=== PATIENT | female | born 1985 | race Hispanic/Latino ===

== ENCOUNTER 2018-09-20 16:32 | Emergency (ER) | payer MEDICAID, SELFPAY ==
[2018-09-20 16:56] LABS: Bilirubin Negative (Negative); Blood, Urine Trace (Negative); Clarity Slightly Cloudy (Clear); Glucose, Urine (Dipstick) Negative (Negative); Leukocyte Moderate (Negative); Nitrite Negative (Negative); Protein, Urine (Dipstick) Negative (Neg-Trace); pH, Urine 7.5 (5.0-9.0)
[2018-09-20 16:57] LABS: Pregnancy Test - Urine (BHCG) Negative (Negative); Pregu Control Background? CLEAR/WHITE (CLR/WHITE); Pregu Control Bar Appear? YES (CONTROL BAR)
[2018-09-20 17:10] LABS: Bacteria/HPF 2+ HPF (None Seen); Squamous Epithelial 0-3 HPF (0-3)
[2018-09-20] MEDS ORDERED: Cephalexin 250 MG CAP ONE (17:34)
[2018-09-20] MEDS ORDERED: Phenazopyridine HCl 97.5 MG TABLET ONE (17:35)
== END 2018-09-20 17:41 | disposition home or self-care (01) ==
LOC: SCSER 16:32
DX: N39.0 Urinary tract infection, site not specified (principal)
CPT/HCPCS: 81001; 81025; 99283